=== PATIENT | female | born 1975 | race Caucasian/White ===

== ENCOUNTER 2018-09-04 12:21 | Emergency (ER) | payer MEDICARE, OTHER ==
[2018-09-04 12:55] LABS: ADD MAN DIFF? NO
[2018-09-04 12:58] LABS: BASOPHILS % 0.1 % (0.0-2.0); EOSINOPHILS # 0.1 10^3/ul (0.0-0.5); EOSINOPHILS % 0.5 % (0.0-7.0); HEMOGLOBIN 11.1 g/dl (12.0-16.0); LYMPHOCYTES # 1.2 10^3/ul (0.8-2.9); MEAN CORPUSCULAR HEMOGLOBIN 36.2 pg (29.0-33.0); MEAN CORPUSCULAR HGB CONC 31.7 g/dl (32.0-37.0); MEAN PLATELET VOLUME 9.6 fl (7.4-10.4); MONOCYTE # 0.9 10^3/ul (0.3-0.9); MONOCYTES % 10.1 % (0.0-11.0); NUCLEATED RED BLOOD CELLS% 0.2 /100WBC (0.0-0.0); PLATELET COUNT 157 10^3/UL (140-415); RED BLOOD COUNT 3.07 10^6/ul (4.20-5.40); RED CELL DISTRIBUTION WIDTH 18.3 % (11.5-14.5)
[2018-09-04 12:58] LABS: WHITE BLOOD COUNT 9.3 10^3/ul (4.8-10.8)
[2018-09-04 13:13] LABS: INR 0.91; PARTIAL THROMBOPLASTIN TIME 24.8 Sec (23.0-35.0); PROTIME 12.3 Sec (11.9-14.9)
[2018-09-04 13:15] LABS: ALANINE AMINOTRANSFERASE 25 IU/L (13-69); ALBUMIN 4.2 g/dl (3.3-4.9); ALKALINE PHOSPHATASE 108 IU/L (42-121); ANION GAP 6 (5-13); ASPARTATE AMINO TRANSFERASE 21 IU/L (15-46); BILIRUBIN,INDIRECT 0.6 mg/dl (0-1.1); BILIRUBIN,TOTAL 0.6 mg/dl (0.2-1.3); BLOOD UREA NITROGEN 33 mg/dl (7-20); CALCIUM 9.5 mg/dl (8.4-10.2); CARBON DIOXIDE 36 mmol/L (21-31); CHLORIDE 94 mmol/L (97-110); CREATININE 4.74 mg/dl (0.44-1.00); Estimated GFR 10 mL/min (>60); GLUCOSE 89 mg/dl (70-220); POTASSIUM 3.8 mmol/L (3.5-5.1); SODIUM 136 mmol/L (135-144); TOTAL PROTEIN 6.4 g/dl (6.1-8.1)
[2018-09-04] MEDS: HYDROCODONE/APAP (10/325) TAB PO (13:28)
== END 2018-09-04 14:39 | disposition home or self-care (01) ==
LOC: E/R 12:21
DX: G44.209 Tension-type headache, unspecified, not intractable (principal); N18.6 End stage renal disease; I12.0 Hypertensive chronic kidney disease with stage 5 chronic kidney disease or end stage renal disease; Z99.2 Dependence on renal dialysis
CPT/HCPCS: 70450; 80053; 85025; 85610; 85730; 99284-25